=== PATIENT | female | born 1980 | race African-American/Black ===

== ENCOUNTER 2024-11-18 07:26 | Emergency (ER) | payer BC, SELFPAY ==
[2024-11-18 07:27] VITALS: BP 128/87
--- NOTE | 2024-11-18 07:31 | ED.GENMED ---
History of Present Illness
General
Chief Complaint: Headache
Time Seen by Provider: 11/18/24 07:31
History of Present Illness
History of Present Illness:
TIME OF INITIAL EVALUATION
- 7:35 AM
REVIEW OF OLD RECORDS
- The patient has a history of migraines, asthma, GERD. Otherwise no old records available for review in [facility]
Note:
CHIEF COMPLAINT(S)
Headache with blurry vision and dizziness for the past week.
HISTORY OF PRESENT ILLNESS
The patient is a 44-year-old female with a known history of migraines who presents with a headache persisting for the past week. She describes the headache as not the worst she has experienced but notes a significant impact on her functionality due
to feelings of wooziness and a sensation of pressure. The headache and associated symptoms, including blurry vision and dizziness, often begin upon standing and have been described by the patient as a 'never-ending cycle.' The patient reports
feeling exhausted without any clear reason, and she experiences nausea currently. There is no previous history of a computed tomography (CT) scan of the brain; however, an MRI had been recommended by her primary care physician and is pending
scheduling. She typically experiences headaches related to her menstrual cycle, noting a particularly severe headache began last Friday. She is currently on medications for blood pressure management.
PHYSICAL EXAM
- General: The patient appears tearful and upset
- HEENT: Moist oral mucosa
- Cardiovascular: No murmurs, normal heart rate, regular rhythm, No chest wall tenderness
- Pulmonary: No respiratory distress, breath sounds are clear and equal
- Abdomen: Soft with no peritoneal signs, no tenderness
- Neurologic: Excellent strength all extremities, no coordination deficits
- Psychiatric: Tearful and upset, appears somewhat anxious
- Extremities: Nontender, no edema, moves all extremities equally
- Skin: No rash, no lesions
PLAN
1. Perform a CT scan to rule out more serious causes of symptoms.
2: Conduct blood work to investigate underlying causes.
3. Administer medication, including Reglan (metoclopramide) and Benadryl (diphenhydramine), to address the headache and associated nausea.
4: Provide Toradol (ketorolac) for additional headache relief.
5: Submit an EKG to evaluate cardiac function as part of a comprehensive assessment.
6: Reassess and discuss results with the patient after initial tests and interventions.
DIFFERENTIAL DIAGNOSIS
The Differential Diagnosis includes, in no particular order and is not limited to:
1. Migraine headache
2. Tension-type headache
3. Medication overuse headache
4. Vestibular migraine
5. Benign paroxysmal positional vertigo (BPPV)
6. Sinus headache
7. Anxiety-related dizziness
8. Idiopathic intracranial hypertension
9. Cervicogenic headache
10. Dehydration-related headache
RADIOLOGY
- CT head shows no acute abnormality
EKG
- Sinus 78, normal axis, nonspecific ST abnormality, no old to compare there is some diffuse T wave flattening
LABS
- Troponin less than 0.012, TSH normal, chemistries unremarkable, mild anemia noted with hemoglobin of 9.8 with no old to compare
UPDATE
-SUMMARY OF ENCOUNTER
The patient, a 44-year-old female with a history of migraines, presented to the emergency department with a headache, blurry vision, and dizziness persisting for the past week. A CT scan of the brain was performed which showed no signs of bleeding
or tumors, indicating no life-threatening issues. Cardiac blood work and an EKG were conducted to rule out a heart attack, both yielding non-alarming results. The patients blood work indicated a slightly lower than expected hemoglobin level,
suggestive of possible anemia. Medications administered included metoclopramide (Reglan), diphenhydramine (Benadryl), and ketorolac (Toradol) for headache relief and nausea, along with fluids for hydration. The patient reported feeling slightly
better after treatment.
PLAN
Additional iron studies will be ordered to investigate the patients low hemoglobin levels. The patient will be informed of the results and may require iron supplementation depending on findings.
INDEPENDENT REVIEW OF LABS AND INTERPRETATION OF TESTS
- My independent review of cardiac blood work indicates no signs of a heart attack.
- My independent interpretation of the EKG shows non-specific findings, which are not indicative of an acute problem.
- My independent review of the complete blood count (CBC) reveals a lower than expected hemoglobin level.
MEDICATION RECONCILIATION
The patient was administered metoclopramide (Reglan), diphenhydramine (Benadryl), and ketorolac (Toradol) in the emergency department.
MEDICAL DECISION MAKING
- Complexity of Data Reviewed: Chronic conditions affecting care include the patients history of migraines. Potential differential diagnoses include migraine headache, tension-type headache, medication overuse headache, vestibular migraine, benign
paroxysmal positional vertigo (BPPV), sinus headache, anxiety-related dizziness, idiopathic intracranial hypertension, cervicogenic headache, and dehydration-related headache.
- Data:
- Category 1: Lab tests ordered include cardiac blood work and CBC. The CT scan of the brain was conducted and independently interpreted.
- Category 2: No additional historians were used.
- Category 3: No discussion of management with other healthcare providers mentioned.
- Risk: Consideration of Admission/Observation: Escalation of care including admission/observation was considered given the complexity and risk of the patients presenting complaint, exam findings, and/or underlying comorbidities. However, ultimately
the patient is deemed safe for outpatient management with close follow-up. Reasoning: Work-up is reassuring, does not reveal any acute life/organ-threatening processes, patients symptoms well-controlled upon reevaluation, reexamination is
reassuring, vitals are stable, patient agreeable with discharge, reliable for follow-up.
DIAGNOSIS
- Migraine headache (ICD-10: G43.909)
- Mild anemia (ICD-10: D64.9)
PATIENT EDUCATION AND COUNSELING
The patient was informed about the results of her tests, including the CT scan showing no critical issues and the slightly low hemoglobin level. The importance of follow-up with her primary care physician for further evaluation of her anemia was
discussed.
FOLLOW-UP INSTRUCTIONS
The patient is advised to follow up with her primary care doctor for further evaluation and management, including potential iron supplementation based on pending iron study results. The primary care doctor was mentioned to be located in [place].
I did inform patient by calling her that her iron studies suggested slight iron deficiency anemia and that she could try [id number] iron supplementation I also strongly recommended PMD follow-up. I also went over side effects of iron
supplementation with her as well. Of note, she did recently issue her period.
Phy Exam
Physical Exam
Physical Exam:
See HPI
Course
Orders/Labs/Results
Orders:
Orders
11/18/24 07:36
Electrocardiogram (*1) Urgent
Reason for Study: Chest Pain
CT Head W/o Iv Contrast Urgent
Comment:
Reason For Exam: severe ANDRE, dizzy, vision change
EKG- Treatment ONCE
0.9% Sodium Chloride 1000 ml [Nss] 1,000 ml IV BOLUS
Diphenhydramine [Benadryl] 25 mg IV NOW STA
Ketorolac [Toradol] 15 mg IV NOW STA
Metoclopramide [Reglan] 10 mg IV NOW STA
11/18/24 07:56
Complete Blood Count/With Diff Urgent
Comprehensive Metabolic Panel Urgent
Ferritin Urgent
Comment: ADD
Iron Urgent
Comment: ADD
Lipase Urgent
TSH Reflex To Free T4 Urgent
Total Iron Binding Urgent
Comment: ADD
Troponin I Urgent
11/18/24 09:14
Add On- LAB Urgent
Tests Added?: iron, TIBC, ferritin
Abnormal Lab Results
11/18/24
07:56
RBC 3.68 L 10^6/uL
(4.20-5.40)
Hgb 9.8 L g/dL
(12.0-16.0)
Hct 30.2 L %
(37.0-47.0)
MCH 26.6 L pg
(27.0-31.0)
MCHC 32.5 L g/dL
(33.0-37.0)
RDW 14.6 H %
(11.5-14.5)
Monocytes % 10.0 H %
(1.7-9.3)
% Saturation 10 L %
(20-50)
11/18/24 07:56
11/18/24 07:56
Vital Signs
Initial and Last Documented VS:
Initial Vital Signs
Temp Pulse Resp BP Pulse Ox
36.8 C 100 20 128/87 98
11/18/24 07:27 11/18/24 07:27 11/18/24 07:27 11/18/24 07:27 11/18/24 07:27
Last Documented Vital Signs
Temp Pulse Resp BP Pulse Ox
36.8 C 84 15 118/56 96
11/18/24 07:27 11/18/24 09:49 11/18/24 09:49 11/18/24 09:49 11/18/24 09:49
*Pulse Oximetry
SaO2: 98
Oxygen Mode of Delivery: Room air
Patient hypoxic: no
*Critical Care Note
Total Time (30-74mins, 75-104mins- exclusive of procedures): Not Applicable
ED Attending Note
-
Portions of this chart may have been created with voice recognition software.� Occasional wrong word or��sound alike� substitutions may have occurred due to the inherent limitations of voice recognition software.
Discharge Plan
Departure
Patient Disposition: Home (Routine Discharge)
Date of Disposition: 11/18/24
Time of Disposition: 09:14
Patient with high blood pressure during this ER visit?: Yes
Discharge Problem:
Headache
Instructions: Headache, Adult (DC), BLOOD PRESSURE
Referrals:
Javier Larios DO [Family Provider, Internal Medicine]
Activity Restrictions/Additional Instructions:
CAT scan of the brain shows no abnormality. For the pain, we gave you Toradol and Reglan with Benadryl. We also gave IV fluids. Cardiac blood work shows no sign of heart attack. Thyroid testing is normal. Kidney, liver, pancreas levels are all
normal, white count is normal, your hemoglobin is somewhat low with a hemoglobin of 9.8 with no old to compare. I have added iron studies and I will call you only if these are abnormal. Return here if worse or other concerns. Follow-up your
primary care doctor.
Interventions
Interventions:
*Risk Screen - Suicide Last Done: 11/18/24 07:27
*General Assessment Last Done: 11/18/24 07:27
*Neglect/Abuse Screening Last Done: 11/18/24 09:03
*ED- Fall Risk Assessment Last Done: 11/18/24 09:03
*ED COVID-19 Vaccine History Last Done: 11/18/24 09:03
*Nursing Disposition Last Done: 11/18/24 09:49
ED- Neurological Assessment Last Done: 11/18/24 09:02
Discharge Date and Time
Discharge Date/Time: 11/18/24 09:50
Print Language: DJIBOUTIAN
[2024-11-18] MEDS: NSS 1000 IV (07:48)
[2024-11-18] MEDS: TORADOL 15 MG IV (07:49)
[2024-11-18] MEDS: BENADRYL 25 MG IV (07:49)
[2024-11-18] MEDS: REGLAN 10 MG IV (07:49)
[2024-11-18 08:05] LABS: Hematocrit 30.2 % (37.0-47.0); Hemoglobin 9.8 g/dL (12.0-16.0); Mean Corp Hgb Conc. 32.5 g/dL (33.0-37.0); Mean Corpuscular Volume 82.1 fL (81.0-99.0); Nucleated Red Blood Cells % 0 %; Platelet Count 377 10^3/uL (130-400); Red Cell Dist. Width 14.6 % (11.5-14.5)
[2024-11-18 08:17] LABS: ALT (SGPT) 17 U/L (0-35); AST (SGOT) 21 U/L (14-36); Albumin 4.4 g/dl (3.5-5.0); Alkaline Phosphatase 67 U/L (38-126); Blood Urea Nitrogen 7 mg/dl (7-17); Calcium 9.2 mg/dl (8.4-10.2); Carbon Dioxide 24 mmol/L (22-30); Chloride 107 mmol/L (98-107); Glucose 97 mg/dl (70-99); Lipase 61 U/L (23-300); Potassium 4.1 mmol/L (3.5-5.1); Sodium 137 mmol/L (135-145); Total Protein 7.3 g/dl (6.3-8.2); eGFR > 60.00
[2024-11-18 08:34] LABS: Troponin I < 0.012 ng/ml
[2024-11-18 09:10] VITALS: BP 115/55
[2024-11-18 09:49] VITALS: BP 118/56
[2024-11-18 10:04] LABS: Iron 39 ug/dl (37-170)
[2024-11-18 10:13] LABS: Total Iron Binding Capacity 390 ug/dl (265-497)
[2024-11-18 11:36] LABS: Ferritin 6.9 ng/ml (6.24-137)
== END 2024-11-18 09:50 | disposition home or self-care (01) ==
LOC: EMR 07:26
PROVIDERS: EMERGENCY PHYSICIAN Emergency Medicine; FAMILY PHYSICIAN Internal Medicine
DX: G43.909 Migraine, unspecified, not intractable, without status migrainosus (principal); D64.9 Anemia, unspecified; J45.909 Unspecified asthma, uncomplicated
CPT/HCPCS: 96374; 96375; 96361; 99284; 70450; 80053; 82728; 83540; 83550; 83690; 84443; 84484; 85025; 93005